=== PATIENT | female | born 1945 | race Caucasian/White ===

== ENCOUNTER → 2017-03-21 | Outpatient (CLI) | payer OTHER, BC | LOC: FIMAGING 08:10 | PROVIDERS: ATTEND Internal Medicine | DX: Z12.31 Encounter for screening mammogram for malignant neoplasm of breast (principal) | CPT/HCPCS: G0202 ==

== ENCOUNTER → 2017-07-21 | Outpatient (CLI) | payer OTHER, BC | LOC: BMCIMAGING 09:18 | PROVIDERS: ATTEND Family Medicine | DX: M47.894 Other spondylosis, thoracic region (principal); M50.31 Other cervical disc degeneration, high cervical region; M43.12 Spondylolisthesis, cervical region; M25.512 Pain in left shoulder ==

== ENCOUNTER → 2018-03-21 | Outpatient (CLI) | payer OTHER, BC | DX: Z12.31 Encounter for screening mammogram for malignant neoplasm of breast (principal) ==